=== PATIENT | female | born 1995 ===

== ENCOUNTER 2020-05-30 10:11 | Emergency (ER) ==
[2020-05-31 14:14] LABS: SARS-CoV-2 MS2 Positive; SARS-CoV-2 N Gene Negative; SARS-CoV-2 S Gene Negative; SARS-CoV-2 orf1ab Negative
== END 2020-05-30 10:20 | disposition home or self-care (01) ==
LOC: ER/OP 10:11
DX: Z53.21 Procedure and treatment not carried out due to patient leaving prior to being seen by health care provider (principal)
CPT/HCPCS: 87635; U0003